=== PATIENT | female | born 1950 | race Caucasian/White ===

== ENCOUNTER 2020-08-30 13:29 | Emergency (ER) | payer BC, OTHER ==
[~2020-08-30] VITALS: Ht 165.1 cm; Wt 77.1 kg
[2020-08-30 15:22] VITALS: BP 114/73
[2020-08-30] MEDS ORDERED: ACETAMINOPHEN 500 MG TAB PO ONE (15:30)
== END 2020-08-30 15:54 | disposition home or self-care (01) ==
LOC: ER 13:29
DX: S29.011A Strain of muscle and tendon of front wall of thorax, initial encounter (principal); S80.02XA Contusion of left knee, initial encounter; I10 Essential (primary) hypertension; I48.91 Unspecified atrial fibrillation; J45.909 Unspecified asthma, uncomplicated; W01.0XXA Fall on same level from slipping, tripping and stumbling without subsequent striking against object, initial encounter; Y93.89 Activity, other specified; Y92.89 Other specified places as the place of occurrence of the external cause; Y99.8 Other external cause status
CPT/HCPCS: 71046; 73562; 93005

== ENCOUNTER 2021-06-27 11:11 | Emergency (ER) | payer BC ==
[~2021-06-27] VITALS: Ht 162.6 cm; Wt 103.4 kg
[2021-06-27 12:48] LABS: Basophils # (auto) 0.1 10 ^3/uL (0-0.2); Basophils % (auto) 0.9 % (0.0-2.0); Eosinophils # (auto) 0 10 ^3/uL (0-0.8); Eosinophils % (auto) 0.2 % (0.0-7.0); Hematocrit 49.8 % (36.0-46.0); Hemoglobin 16.4 g/dL (12.2-16.2); Lymphocytes # (auto) 1.9 10 ^3/uL (0.4-5.4); Mean Corpuscular Volume 87.8 fL (80.0-100.0); Monocytes # (auto) 0.6 10 ^3/uL (0-1.3); Monocytes % (auto) 4.3 % (0.0-12.0); Neutrophils # (auto) 11.9 10 ^3/uL (1.6-8.6); Neutrophils % (auto) 81.6 % (37.0-80.0); Nucleated Red Blood Cells % 0.2 %; Red Blood Cells 5.67 10^6/uL (4.0-5.20); Red Cell Distribution Width 14.4 % (11.8-14.3); White Blood Cell 14.6 10^3/uL (4.4-10.8)
[2021-06-27 13:09] LABS: Albumin 3.2 g/dL (3.4-5.0); BUN/Creatinine Ratio 9.4; Calcium 9.8 mg/dL (8.5-10.1); Potassium 4.3 mmol/L (3.5-5.1)
[2021-06-27 13:11] LABS: Bilirubin, Total 0.6 mg/dL (0.2-1.0); Total Protein 7.5 g/dL (6.4-8.2)
[2021-06-27 13:12] LABS: Magnesium 2.2 mg/dL (1.6-2.6)
[2021-06-27] MEDS ORDERED: KETOROLAC TROMETH 30 MG/ML 1ML VIAL IV ONE (13:30)
[2021-06-27] MEDS ORDERED: NITROGLYCERIN 0.4 MG SL TAB SL PRN (14:00)
[2021-06-27] MEDS ORDERED: DEXTROSE (50%) 50ML SYRG IV PRN (14:00)
[2021-06-27] MEDS ORDERED: ACETAMINOPHEN 325 MG TAB PO PRN (14:00)
[2021-06-27] MEDS ORDERED: SODIUM CHLORIDE 0.9% 1,000 ML IV SCH (14:00)
[2021-06-27] MEDS ORDERED: HYDROcodone-ACET 5/325MG TAB PO PRN (14:00)
[2021-06-27] MEDS ORDERED: MORPHINE SULFATE 4 MG/ML SYR/VIAL IV PRN (14:00)
[2021-06-27 16:17] VITALS: BP 109/86
[2021-06-27 16:29] LABS: INR 1.05 (0.9-1.15); Partial Thromboplastin Time 24.4 sec (23.6-33.0)
[2021-06-27] MEDS ORDERED: InsuLIN REG 1unit/0.01ml Soln (100units/ml) SC SCH (18:00)
[2021-06-27] MEDS ORDERED: ACCU-CHEK COMFORT CURVE STRIP VI SCH (18:00)
[2021-06-28] MEDS ORDERED: ENOXAPARIN SOD 40 MG/0.4 ML SYRINGE SC SCH (10:00)
== END 2021-06-27 16:34 | disposition short-term general hospital (02) ==
LOC: EDBD 11:11 → ER 11:11 → EDUNIT# 11:11 → TELE 13:53 → UNDOADMIN 13:53 → UNDODISIN 16:17
DX: T42.8X1A Poisoning by antiparkinsonism drugs and other central muscle-tone depressants, accidental (unintentional), initial encounter (principal); I62.00 Nontraumatic subdural hemorrhage, unspecified; R55 Syncope and collapse; I12.9 Hypertensive chronic kidney disease with stage 1 through stage 4 chronic kidney disease, or unspecified chronic kidney disease; I48.91 Unspecified atrial fibrillation; J45.909 Unspecified asthma, uncomplicated; N18.9 Chronic kidney disease, unspecified; G89.29 Other chronic pain; W18.39XA Other fall on same level, initial encounter; M54.9 Dorsalgia, unspecified; S90.31XA Contusion of right foot, initial encounter; S09.90XA Unspecified injury of head, initial encounter; Z86.73 Personal history of transient ischemic attack (TIA), and cerebral infarction without residual deficits; Z20.822 Contact with and (suspected) exposure to COVID-19; Z90.710 Acquired absence of both cervix and uterus; Y93.89 Activity, other specified; Y92.89 Other specified places as the place of occurrence of the external cause; Y99.8 Other external cause status
CPT/HCPCS: 36415; 70450; 71045; 73620; 80053; 83036; 83735; 84484; 85025; 85610; 85730; 87426; 93005; 93306; 96361; 96374; 99285; J1885; J7030; G0378

== ENCOUNTER 2021-10-21 17:42 | Emergency (ER) | payer BC ==
[~2021-10-21] VITALS: Ht 154.9 cm; Wt 77.5 kg
[2021-10-21 19:20] LABS: Basophils # (auto) 0.1 10 ^3/uL (0-0.2); Basophils % (auto) 0.6 % (0.0-2.0); Eosinophils # (auto) 0.2 10 ^3/uL (0-0.8); Hematocrit 48.5 % (36.0-46.0); Hemoglobin 15.7 g/dL (12.2-16.2); Lymphocytes # (auto) 2.5 10 ^3/uL (0.4-5.4); Lymphocytes % (auto) 22.5 % (10.0-50.0); Mean Corpuscular Hemoglobin 28.1 pg (28.0-32.0); Mean Corpuscular Hgb Conc. 32.5 g/dL (32.0-36.0); Mean Corpuscular Volume 86.5 fL (80.0-100.0); Monocytes # (auto) 0.6 10 ^3/uL (0-1.3); Monocytes % (auto) 5.5 % (0.0-12.0); Neutrophils # (auto) 7.8 10 ^3/uL (1.6-8.6); Neutrophils % (auto) 69.4 % (37.0-80.0); Nucleated Red Blood Cells % 0.1 %; Red Cell Distribution Width 14.4 % (11.8-14.3); White Blood Cell 11.2 10^3/uL (4.4-10.8)
[2021-10-21 19:40] LABS: Albumin 3.4 g/dL (3.4-5.0); BUN/Creatinine Ratio 14.1; Calcium 9.4 mg/dL (8.5-10.1); Potassium 4.3 mmol/L (3.5-5.1)
[2021-10-21 19:43] LABS: Bilirubin, Total 0.5 mg/dL (0.2-1.0); Total Protein 7.3 g/dL (6.4-8.2)
[2021-10-22 01:40] VITALS: BP 158/112
== END 2021-10-22 02:30 | disposition left against medical advice (07) ==
LOC: ER 17:42
DX: R00.2 Palpitations (principal); Z53.21 Procedure and treatment not carried out due to patient leaving prior to being seen by health care provider
CPT/HCPCS: 36415; 80053; 84484; 85025; 93005

== ENCOUNTER 2022-09-23 10:00 | Emergency (ER) | payer BC ==
[~2022-09-23] VITALS: Ht 152.4 cm; Wt 79.5 kg
[2022-09-23 10:22] VITALS: BP 144/74
[2022-09-23] MEDS ORDERED: HYDROcodone-ACET 5/325MG TAB PO ONE (10:30)
== END 2022-09-23 12:08 | disposition home or self-care (01) ==
LOC: ER 10:00
DX: S80.01XA Contusion of right knee, initial encounter (principal); S90.121A Contusion of right lesser toe(s) without damage to nail, initial encounter; I48.91 Unspecified atrial fibrillation; J45.909 Unspecified asthma, uncomplicated; I63.9 Cerebral infarction, unspecified; I25.2 Old myocardial infarction; I12.9 Hypertensive chronic kidney disease with stage 1 through stage 4 chronic kidney disease, or unspecified chronic kidney disease; N18.9 Chronic kidney disease, unspecified; Z90.49 Acquired absence of other specified parts of digestive tract; Z90.710 Acquired absence of both cervix and uterus; Z88.8 Allergy status to other drugs, medicaments and biological substances; W18.31XA Fall on same level due to stepping on an object, initial encounter; Y93.89 Activity, other specified; Y92.89 Other specified places as the place of occurrence of the external cause; Y99.8 Other external cause status
CPT/HCPCS: 73564; 73630

== ENCOUNTER 2025-02-23 07:11 | Inpatient (IN) | payer BC ==
[~2025-02-23] VITALS: Ht 165.1 cm; Wt 77.9 kg
--- NOTE | 2025-02-23 07:55 | ED.PDOC ---
History of Present Illness(SKN HPI Comments 75 y.o female with PMHx of NE, TIA x2, HTN, HLD, DM, presents to the ED for an evaluation of an insect bite to right eye x 1 day. Patient developed redness and swelling s/p bite and today states symptoms have spread to her cheek. She mentions similar symptoms when she was stung by a bee. She denies any fever, chills, nausea, vomiting, vision changes, or drainage. Chief Complaint: Insect Bite Time Seen by MD: 07:32 Primary Care Provider: NGHIA History of Present Illness: Nurses Notes, Medications, Allergies Allergies: Coded Allergies: Prochlorperazine (Verified Allergy, Unknown, 09/23/22) Information Source: Patient, Spouse Mode of Arrival: Ambulatory Severity: Moderate Timing: Days (1) Duration: Since onset Location: Face Mechanism: Insect Object: None Condition of Object: None Immunization Status of Animal: NA History of: Diabetes, Previous Similar Rash Associated Signs and Symptoms: Redness, Swelling Past Medical History PAST MEDICAL HISTORY: AFIB, Asthma, CKF, CVA, DM, HTN, NE Surgical History: Appendectomy, Cholecystectomy, Hysterectomy PROCEDURE RN History: Denies all PROCEDURE RN Hx Family History Family History: Unknown Social History Smoker: Non-Smoker Alcohol: Denies ETOH Use Drugs: Denies Drug Use Lives In: Home Constitutional: denies: chills, diaphoresis, fatigue, fever, malaise, sweats, weakness, others EENTM: denies: blurred vision, double vision, ear bleeding, ear discharge, ear drainage, ear pain, ear ringing, eye pain, eye redness, hearing loss, mouth pain, mouth swelling, nasal discharge, nose bleeding, nose congestion, nose pain, photophobia, tearing, throat pain, throat swelling, voice changes, others Respiratory: denies: cough, hemoptysis, orthopnea, SOB at rest, shortness of breath, SOB with excertion, stridor, wheezing, others Cardiovascular: denies: chest pain, dizzy spells, diaphoresis, Dyspnea on exertion, edema, irregular heart beat, left arm pain, lightheadedness, palpitations, PND, syncope, others Gastrointestinal: denies: abdomen distended, abdominal pain, blood streaked bowels, constipated, diarrhea, dysphagia, difficulty swallowing, hematemesis, melena, nausea, poor appetite, poor fluid intake, rectal bleeding, rectal pain, vomiting, others Genitourinary: denies: abnormal vagina bleeding, burning, dyspareunia, dysuria, flank pain, frequency, hematuria, incontinence, pain, , vagina discharge, urgency, others Neurological: denies: dizziness, fainting, headache, left sided numbness, left sided weakness, numbness, paresthesia, pre-existing deficit, right sided numbness, right sided weakness, seizure, speech problems, tingling, tremors, weakness, others Musculoskeletal: denies: back pain, gout, joint pain, joint swelling, muscle pain, muscle stiffness, neck pain, others Integumetry: reports: others (insect bite to right eyelid- redness and swelling ); denies: bruises, change in color, change in hair/nails, dryness, laceration, lesions, lumps, rash, wounds Allergic/Immunocompromised: denies: Difficulty Healing, Frequent Infections, Hives, Itching, others Hematologic/Lymphatic: denies: anemia, blood clots, easy bleeding, easy bruising, swollen glands, others Endocrine: denies: excessive hunger, excessive sweating, excessive thirst, excessive urination, flushing, intolerance to cold, intolerance to heat, unexplained weight gain, unexplained weight loss, others Psychiatric: denies: anxiety, bipolar disorder, depression, hopeless, panic disorder, schizophrenia, sleepless, suicidal, others All Other Systems: Reviewed and Negative Physical Exam General Appearance: Moderate Distress HEENT: Normal ENT Inspection, Pharynx Normal, TMs Normal Neck: Full Range of Motion, Non-Tender, Normal, Normal Inspection Respiratory: Chest Non-Tender, Lungs Clear, No Accessory Muscle Use, No Respiratory Distress, Normal Breath Sounds Cardiovascular: No Edema, No JVD, No Murmur, No Gallop, Normal Peripheral P ulses, Regular Rate/Rhythm Breast Exam: Deferred Gastrointestinal: No Organomegaly, Non Tender, No Pulsatile Mass, Normal Bowel Sounds, Soft Genitalia: Deferred Pelvic: Deferred Rectal: Deferred Extremities: No calf tenderness, Normal capillary refill, Normal inspection, Normal range of motion, Non-tender, No pedal edema Musculoskeletal : Apperance: Normal Neurologic: Alert, chief technician x ray II-XII nml as Tested, No Motor Deficits, Normal Affect, Normal Mood, No Sensory Deficits Cerebellar Function: Normal Reflexes: Normal Skin: Wounds (Facial redness with swelling in the right side including the lower eyelid) Peripheral Pulses: 3+ Radial (R), 3+ Radial (L) Lymphatic: No Adenopathy Was a procedure done? Was a procedure done?: No Differential Diagnosis (INTG) Differential Diagnosis: Cellulitis, Insect Envenomation Differential Diagnosis: Abscess X-Ray, Labs, Meds, VS Vital Signs Date Time Temp Pulse Resp B/P (MAP) Pulse Ox O2 Delivery O2 Flow Rate FiO2 02/23/25 07:13 98.1 88 18 168/89 92 98.1 Lab Test 02/23/25 08:00 Range/Units White Blood Count Pending Red Blood Count Pending Hemoglobin Pending Hematocrit Pending Mean Corpuscular Volume Pending Mean Corpuscular Hemoglobin Pending Mean Corpuscular Hemoglobin Concent Pending Red Cell Distribution Width Pending Platelet Count Pending Mean Platelet Volume Pending Neutrophils (%) (Auto) Pending Lymphocytes (%) (Auto) Pending Monocytes (%) (Auto) Pending Basophils (%) (Auto) Pending Neutrophils # (Auto) Pending Lymphocytes # (Auto) Pending Monocytes # (Auto) Pending Sodium Level Pending Potassium Level Pending Chloride Level Pending Carbon Dioxide Level Pending Anion Gap Pending Blood Urea Nitrogen Pending Creatinine Pending Glomerular Filtration Rate Calc Pending BUN/Creatinine Ratio Pending Serum Glucose Pending Calcium Level Pending Current Medications Medications (Trade) Dose Ordered Sig/Dalia Route Start Time Stop Time Status Last Admin Sodium Chloride 1,000 ml @ 150 mls/hr Q6H40M ONCE IV 02/23/25 08:00 02/23/25 14:39 02/23/25 08:15 Piperacillin Sod/ Tazobactam Sod 100 ml @ 100 mls/hr ONCE ONCE IV 02/23/25 08:00 02/23/25 08:59 02/23/25 08:15 Patient alert pain Has a insect bite on the right side of the face. Within 24 hours she does have swelling of the right side of the face including the right lower eyelid. Vitals stable. No shortness a breath. She does have chronic history. Explained to the family that she will be admitted for intravenous antibiotics. Establish intravenous access. Was given fluids. Was given Zosyn. Continue monitoring. Time of 1ST Reevaluation: 07:51 Reevaluation 1ST: Unchanged Patient Education/Counseling: Diagnosis, Treatment, Prognosis Family Education/Counseling: Diagnosis, Treatment, Prognosis SEPSIS Sepsis Screen Date sepsis recognized/suspect: Feb 23, 2025 Time Sepsis recognized/suspect: 714 Recent Procedure: No On Antibiotic Therapy: No Respiratory Rate >20: No Heart Rate >90: No Temp<36 C (96.8 F) or >38.3 C: No SBP <90 or MAP <65 mmHG: No New Acute Mental Status Change: No Is the patient on CPAP, BIPAP,: No Physician Orders Complete Blood Count (02/23/25 07:54) Chest Portable (02/23/25 07:54) Urinalysis (02/23/25 07:54) Basic Metabolic Panel (02/23/25 07:54) Sodium Chloride 0.9% (02/23/25 08:00) Piperacillin-Tazob 3.375gm (Zosyn 3.375g (02/23/25 08:00) Vital Signs Date Time Temp Pulse Resp B/P (MAP) Pulse Ox O2 Delivery O2 Flow Rate FiO2 02/23/25 07:13 98.1 88 18 168/89 92 98.1 Laboratory Tests Test 02/23/25 08:00 White Blood Count Pending Medications Medications Dose Ordered Sig/Dalia Route Start Time Stop Time Status Last Admin Dose Admin Piperacillin Sod/ Tazobactam Sod 100 ml @ 100 mls/hr ONCE ONCE IV 02/23/25 08:00 02/23/25 08:59 02/23/25 08:15 Sodium Chloride 1,000 ml @ 150 mls/hr Q6H40M ONCE IV 02/23/25 08:00 02/23/25 14:39 02/23/25 08:15 Departure 1 Departure Time of Disposition: 08:34 Impression: Primary Impression: Facial cellulitis Disposition: 09 ADMITTED INPATIENT Admit to: Med Surg Condition: Guarded Critical Care Note Critical Care Time?: No Stability Stability form required: No I personally scribed for LOGAN CLEMENTE MD ([email or web address]) on 02/23/25 at 07:55. Electronically submitted by Bev Sexton ([facility]). LOGAN CLEMENTE MD Feb 23, 2025 07:55
[2025-02-23] MEDS: SODIUM CHLORIDE 0.9% 1,000 ML IV ONE (08:15)
[2025-02-23] MEDS: PIPERACILLIN-TAZOB 3.375GM 100 ML IV ONE (08:15)
[2025-02-23 08:30] LABS: Hematocrit 47.3 % (36.0-46.0); Hemoglobin 15.9 g/dL (12.2-16.2); Mean Corpuscular Hemoglobin 29.1 pg (28.0-32.0); Mean Corpuscular Volume 86.6 fL (80.0-100.0); Nucleated Red Blood Cells % 0.2 %
[2025-02-23 08:50] LABS: Chloride 103 mmol/L (98-107); Potassium 4.4 mmol/L (3.5-5.1); Sodium 139 mmol/L (136-145)
[2025-02-23 08:51] LABS: Anion Gap 9 (5-15); Calcium 10.1 mg/dL (8.7-10.4); Carbon Dioxide 27 mmol/L (20-31)
[2025-02-23 08:56] LABS: BUN/Creatinine Ratio 14.1 (10.0-20.0)
[2025-02-23 08:57] LABS: Blood Urea Nitrogen 23 mg/dL (9-23); Glucose 215 mg/dL (74-106)
[2025-02-23] MEDS: ONDANSETRON HCL 4 MG/2 ML VIAL IV ONE (09:05)
[2025-02-23] MEDS: HYDROcodone-ACET 7.5/325MG TAB PO ONE (09:05)
--- NOTE | 2025-02-23 09:05 | DVH ---
EXAM: XY CHEST PORTABLE Indication: sob Technique: Single frontal view of the chest was obtained Comparison: XR CHEST 1 VIEW on DOS: 05/18/24, CXRP on DOS: 06/27/21, CHEST PORTABLE on DOS: 06/27/21 FINDINGS: Lines and Tubes: Cardiac loop recorder device projects over the left mediastinum. Lungs: Mild pulmonary vascular congestion. Pleura: No effusion. No pneumothorax. Cardiomediastinal contours: Unremarkable Bones: No acute osseous abnormality. IMPRESSION: Mild pulmonary vascular congestion.
[2025-02-23 11:37] LABS: Urine Protein, UAD Negative (Negative)
--- NOTE | 2025-02-23 12:17 | DVH ---
CT MAXILLOFACIAL WITHOUT Indication: Evaluate periorbital collection, pt has CKD (no contrast) EXAM DATE: 02/23/2025 11:36 AM COMPARISON: None TECHNIQUE: CT of the maxillofacial bones without intravenous contrast. RADIATION DOSE: CTDIvol: 66.3 mGy, DLP: 1333.46 mGy*cm FINDINGS: There is bright orbital preseptal and Right facial region edema with inflammatory stranding. This is more pronounced in the right facial /infraorbital orbital region. There is no evidence for retrobulbar extension. The extra-ocular muscles appear unremarkable. There is a small right mastoid effusion. Mild mucosal thickening of the ethmoids. Incidental note of empty sella. No facial region Fracture identified. IMPRESSION: Right orbital preseptal and Right facial region edema and stranding could represent cellulitis in the appropriate setting. Correlate clinically. No evidence for postseptal/ retrobulbar extension. Empty sella.
[2025-02-23] MEDS ORDERED: ACETAMINOPHEN 325 MG TAB PO PRN (12:45)
--- NOTE | 2025-02-23 12:49 | DVHHPRES ---
History of Present Illness Resident Creating Document: HARDY FIELD History of Present Illness Nichelle Abel is a 75 year old female patient who presents to the ED with chief complaint of right periorbital swelling with difficulty opening her eyes and erythema that was triggered after insect bite (ant) which occurred at 7:00 a.m. the day before her admission. Associated she also complaint of chills, nausea and nonbloody vomiting with bile emesis. Patient reports similar symptoms when she had a bee sting bite previously. Patient denies any visual acuity changes, ocular pain with movement, fever and any other associated symptoms. Past medical dyslipidemia diabetes head trauma proximally two years ago and after mechanical fall with brain bleed, since then patient has presented gait alteration and mobilizes with walker, asthma, questionable HI nine years ago with no coronary angiography, chronic kidney disease stage 3, gastritis, chronic back pain, PUD complicated with perforation status post exploratory laparotomy, skin cancer Surgical history: Cholecystectomy, appendicectomy, exploratory laparotomy Family history: Mother had breast cancer. Daughter had multiple myeloma Social history: Lives in [place] with family (next of kin is ). Denies current tobacco, alcohol and other drug abuse Allergies: Prochlorperazine Home medication: Reglan, morphine, Zofran, famotidine, melatonin, Farxiga Patient seen and examined at bedside. Currently has no new complaints. Admitted for further evaluation Past Medical History Per HPI Past Surgical History Per HPI Family History Per HPI Past Social History Per HPI Review of Systems Review of Systems Per HPI Allergies: Coded Allergies: Prochlorperazine (Verified Allergy, Unknown, 09/23/22) Medications Current Medications Medications Dose Ordered Sig/Dalia Route Start Time Stop Time Status Last Admin Dose Admin Acetaminophen 325 mg Q4HP PRN PO 02/23/25 12:45 UNV Ondansetron HCl 4 mg Q4HP PRN IV 02/23/25 12:45 UNV Morphine Sulfate 2 mg Q4HPRN PRN IV 02/23/25 12:45 UNV Enoxaparin Sodium 40 mg DAILY SC 02/24/25 10:00 UNV Clindamycin Phosphate 50 ml @ 50 mls/hr Q8HR IV 02/23/25 14:00 UNV Piperacillin Sod/ Tazobactam Sod 100 ml @ 25 mls/hr Q8HR IV 02/23/25 14:00 UNV Exam Vital Signs Vital Signs Date Time Temp Pulse Resp B/P (MAP) Pulse Ox O2 Delivery O2 Flow Rate FiO2 02/23/25 11:07 98.5 60 17 123/80 (94) 100 98.5 02/23/25 08:53 Room Air Exam Patient lying in bed, in no acute distress General: Lucid, afebrile, mucosae are moist. Right periorbital region with erythema and edema, no pain on palpation, no pain with eye movements. Cardiovascular: Normal S1 and S2. No murmurs, gallops or rubs Respiratory: Normal ventilation mechanics. Clear lung sounds on auscultation Abdomen: Soft, nontender, no organomegaly, normal bowel sounds MSK/skin: Mobilizes 4 limbs. Skin is dry and warm Neurological: Oriented in 3 spheres. No motor no sensitive deficits. Pupils are isocoric and reactive Labs/Xrays Labs Test 02/23/25 10:41 02/23/25 08:00 Range/Units Urine Color Light-yellow Yellow Urine Clarity Clear Clear Urine pH 5.0 5.0-9.0 Urine Specific [place] 1.011 1.001-1.035 Urine Protein Negative Negative Urine Ketones Negative Negative Urine Blood Negative Negative /uL Urine Nitrite Negative Negative Urine Bilirubin Negative Negative Urine Urobilinogen Normal Negative mg/dL Urine Leukocyte Esterase 1+ Negative /uL Urine RBC 1 0 - 4 /hpf Urine Microscopic WBC 5 0-5 /HPF Urine Squamous Epithelial Cells Few <5 /hpf Urine Uric Acid Crystals Few None Seen /hpf Urine Bacteria Few H None Seen /hpf Urine Glucose 4+ H Normal mg/dL White Blood Count 8.5 4.4-10.8 10^3/uL Red Blood Count 5.47 H 4.0-5.20 10^6/uL Hemoglobin 15.9 12.2-16.2 g/dL Hematocrit 47.3 H 36.0-46.0 % Mean Corpuscular Volume 86.6 80.0-100.0 fL Mean Corpuscular Hemoglobin 29.1 28.0-32.0 pg Mean Corpuscular Hemoglobin Concent 33.6 32.0-36.0 g/dL Red Cell Distribution Width 14.6 H 11.8-14.3 % Platelet Count 145 140-450 10^3/uL Mean Platelet Volume 8.3 6.9-10.8 fL Neutrophils (%) (Auto) 72.0 37.0-80.0 % Lymphocytes (%) (Auto) 19.9 10.0-50.0 % Monocytes (%) (Auto) 5.6 0.0-12.0 % Eosinophils (%) (Auto) 1.8 0.0-7.0 % Basophils (%) (Auto) 0.7 0.0-2.0 % Neutrophils # (Auto) 6.1 1.6-8.6 10 ^3/uL Lymphocytes # (Auto) 1.7 0.4-5.4 10 ^3/uL Monocytes # (Auto) 0.5 0-1.3 10 ^3/uL Eosinophils # (Auto) 0.2 0-0.8 10 ^3/uL Basophils # (Auto) 0.1 0-0.2 10 ^3/uL Nucleated Red Blood Cells 0.2 % Sodium Level 139 136-145 mmol/L Potassium Level 4.4 3.5-5.1 mmol/L Chloride Level 103 98-107 mmol/L Carbon Dioxide Level 27 20-31 mmol/L Anion Gap 9 5-15 Blood Urea Nitrogen 23 9-23 mg/dL Creatinine 1.63 H 0.550-1.02 mg/dL Glomerular Filtration Rate Calc 33 >90 mL/min BUN/Creatinine Ratio 14.1 10.0-20.0 Serum Glucose 215 H 74-106 mg/dL Calcium Level 10.1 8.7-10.4 mg/dL SEPSIS Sepsis Screen Date sepsis recognized/suspect: Feb 23, 2025 Time Sepsis recognized/suspect: 714 Recent Procedure: No On Antibiotic Therapy: No Respiratory Rate >20: No Heart Rate >90: No Temp<36 C (96.8 F) or >38.3 C: No SBP <90 or MAP <65 mmHG: No New Acute Mental Status Change: No Is the patient on CPAP, BIPAP,: No Physician Orders Chest Portable (02/23/25 07:54) Sodium Chloride 0.9% (02/23/25 08:00) Maxillofacial Without (02/23/25 11:26) Admit (02/23/25 12:41) Code Status (02/23/25 12:41) Acetaminophen Tablet (Tylenol Tablet) (02/23/25 12:45) Ondansetron Hcl (Zofran) (02/23/25 12:45) Complete Blood Count (02/24/25 04:00) Comprehensive Metabolic Panel (02/24/25 04:00) Cardiac Diet-2gna,Lofat,Lochol (02/23/25 Lunch) Echo 2d Mode Cardiac Dop (02/23/25 12:41) Morphine Sulfate Injection (02/23/25 12:45) Oxygen By Nasal Cannula (02/23/25 12:41) Stat Ekg For Chest Pain (02/23/25 12:41) Notify Md Of Changes From Base (02/23/25 12:41) Meat Grader For 24 Hours (02/23/25 12:41) Emergency Dysrhythmia Protocol (02/23/25 12:41) Rhythm Strips Once Every Shift (02/23/25 12:41) Vitamin D, 25-Hydroxy (02/23/25 12:41) Vitamin B12 (02/23/25 12:41) Urinalysis (02/23/25 12:41) Thyroid Stimulating Hormone (02/23/25 12:41) PTPTT (02/23/25 12:41) Phosphorus (02/23/25 12:41) Magnesium (02/23/25 12:41) Lipid Panel (02/23/25 12:41) Lipase (02/23/25 12:41) Lactic Acid W/ Reflex Order (02/23/25 12:41) Hemoglobin A1c (02/23/25 12:41) Drug Screen (02/23/25 12:41) Blood Culture (02/23/25 12:41) * Wound Consult (02/23/25 ) Wound Culture W/ Gs (02/23/25 12:41) Clindamycin 300mg Iv (Cleocin Iv) (02/23/25 14:00) Piperacillin-Tazob 3.375gm (Zosyn 3.375g (02/23/25 14:00) Urine Bacterial Culture (02/23/25 12:41) Respiratory Culture W/ Gs (02/23/25 12:41) Mrsa Screen (02/23/25 12:41) Enoxaparin Sodium (Lovenox) (02/24/25 10:00) Chest Ultrasound (02/23/25 12:46) Vital Signs Date Time Temp Pulse Resp B/P (MAP) Pulse Ox O2 Delivery O2 Flow Rate FiO2 02/23/25 11:07 98.5 60 17 123/80 (94) 100 98.5 02/23/25 08:53 98.5 75 16 114/70 (85) 97 98.5 02/23/25 08:53 75 16 97 Room Air 02/23/25 07:13 98.1 88 18 168/89 92 98.1 Laboratory Tests Test 02/23/25 08:00 White Blood Count 8.5 10^3/uL (4.4-10.8) Medications Medications Dose Ordered Sig/Dalia Route Start Time Stop Time Status Last Admin Dose Admin Acetaminophen/ Hydrocodone Bitart 1 tab ONCE ONCE PO 02/23/25 09:00 02/23/25 09:01 DC 02/23/25 09:05 1 TAB Ondansetron HCl 4 mg ONCE ONCE IV 02/23/25 09:00 02/23/25 09:01 DC 02/23/25 09:05 4 MG Piperacillin Sod/ Tazobactam Sod 100 ml @ 100 mls/hr ONCE ONCE IV 02/23/25 08:00 02/23/25 08:59 DC 02/23/25 08:15 100 MLS/HR Sodium Chloride 1,000 ml @ 150 mls/hr Q6H40M ONCE IV 02/23/25 08:00 02/23/25 14:39 02/23/25 08:15 150 MLS/HR Assessment/Plan Assessment/Plan ASSESSMENT Right preseptal ocular Cellulitis secondary to insect bite Ruled out periorbital abscess UTI Simple hyperglycemia Left-sided pleural effusion Asthma with no exacerbation Chronic kidney disease stage III B Dyslipidemia Diabetes History of brain bleed with residual gait disturbance - uses walker Peptic ulcer disease with history of perforation status post exploratory laparotomy Chronic back pain History of skin cancer status postop PLAN Admitted to [facility] Ordered maxillofacial CT which ruled out periorbital collections, evidenced cellulitis. Currently under empiric IV antibiotic (clindamycin and Zosyn) Indicated IV fluids Chest x-ray shows left-sided pleural effusion. Ordered chest ultrasound Ordered pancultures On insulin sliding scale Goals of care discussed with patient for over 18 minutes: DNR/DNI Discussed plan with Dr. Graves, patient and nurses: Patient admitted to [facility]. Currently under empiric IV antibiotic and IV fluids. Pending complementary workup. Plan discussed with: Patient, Other (Nurses) My Orders Orders - HARDY FIELD RESIDENT Procedure Category Date Status Time Maxillofacial Without CT 02/23/25 Resulted 11:26 Admit ADMIT 02/23/25 Transmitted 12:41 Code Status CODE 02/23/25 Transmitted 12:41 Acetaminophen Tablet PHA 02/23/25 Logged (Tylenol Tablet) 12:45 Ondansetron Hcl PHA 02/23/25 Logged (Zofran) 12:45 Complete Blood Count LAB 02/24/25 Verified 04:00 Comprehensive LAB 02/24/25 Verified Metabolic Panel 04:00 Cardiac DIET 02/23/25 Transmitted Diet-2gna,Lofat,Lochol Lunch Echo 2d Mode Cardiac US 02/23/25 Logged DOP 12:41 Morphine Sulfate PHA 02/23/25 Logged Injection 12:45 Oxygen By Nasal RT 02/23/25 Transmitted Cannula 12:41 Stat Ekg For Chest [facility] 02/23/25 In Process Pain 12:41 Notify Md Of Changes [facility] 02/23/25 In Process From Base 12:41 Meat Grader For [facility] 02/23/25 In Process 24 Hours 12:41 Emergency Dysrhythmia [facility] 02/23/25 In Process Protocol 12:41 Rhythm Strips Once [facility] 02/23/25 In Process Every Shift 12:41 Vitamin D, 25-Hydroxy LAB 02/23/25 Logged 12:41 Vitamin B12 LAB 02/23/25 Logged 12:41 Urinalysis LAB 02/23/25 Logged 12:41 Thyroid Stimulating LAB 02/23/25 Logged Hormone 12:41 PTPTT LAB 02/23/25 Logged 12:41 Phosphorus LAB 02/23/25 Logged 12:41 Magnesium LAB 02/23/25 Logged 12:41 Lipid Panel LAB 02/23/25 Logged 12:41 Lipase LAB 02/23/25 Logged 12:41 Lactic Acid W/ Reflex LAB 02/23/25 Logged Order 12:41 Hemoglobin A1c LAB 02/23/25 Logged 12:41 Drug Screen LAB 02/23/25 Logged 12:41 Blood Culture ROBERTO 02/23/25 Logged 12:41 * Wound Consult CONS 02/23/25 Transmitted Wound Culture W/ Gs ROBERTO 02/23/25 Logged 12:41 Clindamycin 300mg Iv PHA 02/23/25 Logged (Cleocin Iv) 14:00 Piperacillin-Tazob PHA 02/23/25 Logged 3.375gm (Zosyn 3.375g 14:00 Urine Bacterial ROBERTO 02/23/25 Logged Culture 12:41 Respiratory Culture ROBERTO 02/23/25 Logged W/ Gs 12:41 Mrsa Screen ROBERTO 02/23/25 Logged 12:41 Enoxaparin Sodium PHA 02/24/25 Logged (Lovenox) 10:00 Chest Ultrasound US 02/23/25 Logged 12:46 Date of Service: Feb 23, 2025 Billing Provider: SCOTT GRAVES MD Common Visit Codes: [id number] INP/OBS CARE (HIGH) Secondary Visit Codes: [id number] CARE PLAN 30 MINUTES HARDY FIELD RESIDENT Feb 23, 2025 12:49
--- NOTE | 2025-02-23 13:22 | DVH ---
Exam: US CHEST ULTRASOUND Date: 02/23/2025 01:02 PM Clinical History: Pleural effusion Comparison: CT CHEST WITHOUT on DOS: 05/18/24 Technique: Targeted sonographic evaluation of the soft tissues of the chest bilaterally was obtained utilizing grayscale and color Doppler imaging. Findings: No pleural effusions bilaterally IMPRESSION: 1. No pleural effusions bilaterally.
[2025-02-23] MEDS ORDERED: DEXTROSE (50%) 50ML SYRG IV PRN (13:30)
[2025-02-23 13:34] LABS: INR 1.0 (0.9-1.15); Partial Thromboplastin Time 25.7 SEC (24.5-34.5); Prothrombin Time 10.6 sec (9.3-11.8)
[2025-02-23 13:43] LABS: Magnesium 2.0 mg/dL (1.6-2.6)
[2025-02-23] MEDS: PIPERACILLIN-TAZOB 3.375GM 100 ML IV SCH (13:43)
[2025-02-23] MEDS: CLINDAMYCIN 300MG IV 50 ML IV SCH (13:43)
[2025-02-23 13:44] LABS: HDL Cholesterol 40.0 mg/dL (40-59)
[2025-02-23 13:48] LABS: Cholesterol 236.0 mg/dL (< 200); Triglycerides 365.0 mg/dL (< 150)
[2025-02-23 14:05] LABS: Lipase 86.0 U/L (12-53)
[2025-02-23 14:22] VITALS: BP 138/71; PULSE 67; RESP 16; TEMP 98.4; O2SAT 94
[2025-02-23] MEDS ORDERED: METO-281 PO (14:30)
[2025-02-23] MEDS ORDERED: FAMO20TA10 PO (14:30)
[2025-02-23] MEDS ORDERED: ONDA-155 PO (14:30)
[2025-02-23] MEDS ORDERED: DAPA1TAB4 PO (14:30)
[2025-02-23] MEDS ORDERED: MORP15TA PO (14:30)
[2025-02-23 16:27] LABS: Benzodiazephine Screen, Urine Neg (NEGATIVE)
[2025-02-23 16:34] LABS: Amphetamine Screen, Urine Neg (NEGATIVE); Barbiturate Scree,Urine Neg (NEGATIVE); Cannabinoid Screen, Urine Neg (NEGATIVE); Cocaine Screen, Urine Neg (NEGATIVE); Opiate Scree,Urine Pos (NEGATIVE); Phencyclidine Screen, Urine Neg (NEGATIVE)
[2025-02-23] MEDS: ACCU-CHEK COMFORT CURVE STRIP VI SCH (17:00)
[2025-02-23] MEDS: InsuLIN REG 1unit/0.01ml Soln (100units/ml) SC SCH (17:00)
[2025-02-23 21:00] VITALS: BP 136/67; PULSE 68; RESP 16; TEMP 98; O2SAT 94
[2025-02-23] MEDS: MORPHINE SULFATE INJ 2 MG/ml SYRG IV PRN (21:08)
[2025-02-24] VITALS (8 sets, daily range): BP systolic 116–154; BP diastolic 56–88; PULSE 63–97; RESP 16–18; TEMP 97.9–98.2; O2SAT 94–97
[2025-02-24] MEDS: ONDANSETRON HCL 4 MG/2 ML VIAL IV PRN (01:41)
[2025-02-24 06:56] LABS: Hematocrit 45.1 % (36.0-46.0); Hemoglobin 15.5 g/dL (12.2-16.2); Mean Corpuscular Hemoglobin 29.6 pg (28.0-32.0); Mean Corpuscular Volume 86.5 fL (80.0-100.0); Nucleated Red Blood Cells % 0.1 %
[2025-02-24 07:05] LABS: Alanine Aminotransferase 29 U/L (7-40); Albumin 4.0 g/dL (3.2-4.8); Anion Gap 9 (5-15); BUN/Creatinine Ratio 11.7 (10.0-20.0); Blood Urea Nitrogen 19 mg/dL (9-23); Calcium 9.6 mg/dL (8.7-10.4); Carbon Dioxide 26 mmol/L (20-31); Chloride 106 mmol/L (98-107); Potassium 4.3 mmol/L (3.5-5.1); Sodium 141 mmol/L (136-145); Total Protein 6.9 g/dL (5.7-8.2)
[2025-02-24 07:06] LABS: Bilirubin, Total 1.1 mg/dL (0.2-1.0)
[2025-02-24 07:11] LABS: Glucose 182 mg/dL (74-106)
[2025-02-24 07:34] LABS: Alkaline Phosphatase 112 U/L (46-116)
[2025-02-24] MEDS: ENOXAPARIN SOD 40 MG/0.4 ML SYRINGE SC SCH (10:35)
--- NOTE | 2025-02-24 12:40 | DVHPNRES ---
Progress Note Date Seen: Feb 24, 2025 Resident Creating Document: GARY CARBAJAL RESIDENT Medical Necessity Reason Pt with a Central, PICC or Fol: No Subjective Review of Systems Nichelle Abel is a 75 year old female with past medical history dyslipidemia diabetes head trauma proximally two years ago and after mechanical fall with brain bleed, since then patient has presented gait alteration and mobilizes with walker, asthma, questionable NE nine years ago with no coronary angiography, chronic kidney disease stage 3, gastritis, chronic back pain, PUD complicated with perforation status post exploratory laparotomy, skin cancer presented to the ED with chief complaint of right periorbital swelling with difficulty opening her eyes and erythema that was triggered after insect bite (ant) which occurred at 7:00 a.m. the day before her admission. Associated she also complaint of chills, nausea and nonbloody vomiting with bile emesis. Patient reports similar symptoms when she had a bee sting bite previously. Patient denies any visual acuity changes, ocular pain with movement, fever and any other associated symptoms. On lab workup no leukocytosis, serum creatinine 1.63, GFR 33, HbA1c 12.5, serum glucose 215, started 365, LDL 236. Urinalysis revealed leukocyte esterase 1+, WBC 5, bacteria few. Maxillofacial CT revealed- Right orbital preseptal and Right facial region edema and stranding could represent cellulitis in the appropriate setting. Correlate clinically. No evidence for postseptal/ retrobulbar extension.Empty sella. Chest x-ray mild pulmonary vascular congestion. Ultrasound of the chest negative for pleural effusion. Past medical dyslipidemia diabetes head trauma proximally two years ago and after mechanical fall with brain bleed, since then patient has presented gait alteration and mobilizes with walker, asthma, questionable NE nine years ago with no coronary angiography, chronic kidney disease stage 3, gastritis, chronic back pain, PUD complicated with perforation status post exploratory laparotomy, skin cancer Surgical history: Cholecystectomy, appendicectomy, exploratory laparotomy Family history: Mother had breast cancer. Daughter had multiple myeloma Social history: Lives in [place] with family (next of kin is ). Denies current tobacco, alcohol and other drug abuse Allergies: Prochlorperazine Home medication: Reglan, morphine, Zofran, famotidine, melatonin, Farxiga Patient was seen today at bedside, labs and chart reviewed. No new complaint Patient reported feeling better today Patient has swelling and redness on the face has improved Patient is on Zosyn and clindamycin, tolerating well Objective vital signs Vital Sign Date Time Temp Pulse Resp B/P (MAP) Pulse Ox O2 Delivery O2 Flow Rate FiO2 02/24/25 08:00 97.9 80 17 154/88 (110) 94 97.9 02/23/25 20:00 Room Air* 0 21 Total Intake and Output 02/23/25 02/23/25 02/24/25 15:00 23:00 07:00 Intake Total 0 ml Output Total 500 ml Balance -500 ml medications Current Medications Medications Dose Ordered Sig/Dalia Route Start Time Stop Time Status Last Admin Dose Admin Acetaminophen 325 mg Q4HP PRN PO 02/23/25 12:45 Ondansetron HCl 4 mg Q4HP PRN IV 02/23/25 12:45 02/24/25 10:35 4 MG Morphine Sulfate 2 mg Q4HPRN PRN IV 02/23/25 12:45 02/24/25 01:41 2 MG Enoxaparin Sodium 40 mg DAILY SC 02/24/25 10:00 02/24/25 10:35 40 MG Clindamycin Phosphate 50 ml @ 50 mls/hr Q8HR@0500,1300,2100 IV 02/23/25 13:00 02/24/25 06:07 50 MLS/HR Piperacillin Sod/ Tazobactam Sod 100 ml @ 25 mls/hr Q8HR IV 02/23/25 14:00 02/24/25 06:56 25 MLS/HR Diagnostic Test (Pha) 1 strip ACHS 02/23/25 17:00 02/24/25 06:49 1 STRIP Insulin Human Regular ACHS SC 02/23/25 17:00 02/24/25 06:49 3 UNITS Dextrose 50 ml UD PRN IV 02/23/25 13:30 Examination General examination- awake, alert, oriented HEENT- PEERLA-redness in the right side of the face, under the right eye Cardiovascular- S1-S2 audible, rate and rhythm regular, no murmur Respiratory- CTAB, no wheeze or rhonchi Gastrointestinal-nontender, bowel sound+. Nondistended Musculoskeletal-no acute joint swelling or tenderness or redness Lower extremity- no leg edema Neurological- cranial nerves intact, no acute dysarthria or dysphagia Psychiatry- denies depression or SI or HI Skin- no acute rash or purpura laboratory and microbiology Laboratory Tests 02/24/25 06:25 Test 02/24/25 06:25 Range/Units Serum Glucose 182 H 74-106 mg/dL Microbiology Date/Time Source Procedure Growth Status 02/23/25 13:41 Face Gram Stain Pending Resulted 02/23/25 13:41 Face Wound Culture - Preliminary Resulted 02/23/25 10:41 Voided Urine Urine Culture - Preliminary No growth Resulted Problem List/Assessment/Plan Problem List/Assessment/Plan Assessment and plan #Right preseptal ocular Cellulitis secondary to insect bite Ruled out periorbital abscess -xillofacial CT revealed- Right orbital preseptal and Right facial region edema and stranding could represent cellulitis in the appropriate setting. Correlate clinically. No evidence for postseptal/ retrobulbar extension.Empty sella. . -pending wound culture -pending blood culture -continue Zosyn and clindamycin as prescribed -monitor vitals #UTI -Urinalysis revealed leukocyte esterase 1+, WBC 5, bacteria few -urine culture no growth so far -continue current antibiotic # diabetes mellitus type 2 with hyperglycemia #Dyslipidemia -continue insulin sliding scale as prescribed -continue atorvastatin as prescribed #Asthma with no exacerbation -nebulization PRN #Chronic kidney disease stage III B -avoid dehydration and nephrotoxic drugs #History of brain bleed with residual gait disturbance - uses walker -follow up outpatient with the primary care physician #Peptic ulcer disease with history of perforation status post exploratory laparotomy -continue pantoprazole as prescribed #Chronic back pain -Tylenol PRN #History of skin cancer status postop -follow up PCP outpatient Goals of care, Code status DNR ; discussed with >15 minutes PUD prophylaxis: Pantoprazole DVT prophylaxis: Lovenox Plan discussed with Dr. Graves , nursing staff, Patient Total time spent on patient evaluation, chart review, assessment and plan, discussion discussion >35 minutes Plan discussed with: Patient, Other (RN) Date of Service: Feb 24, 2025 Billing Provider: SCOTT GRAVES MD Common Visit Codes: 23425-[id number] INP/OBS CARE(HIGH) GARY CARBAJAL RESIDENT Feb 24, 2025 12:40
[2025-02-25 01:00] VITALS: BP 120/76; PULSE 88; RESP 18; TEMP 97.5; O2SAT 94
[2025-02-25] MEDS: ACETAMINOPHEN 325 MG TAB PO ONE (02:09)
[2025-02-25] MEDS: METOCLOPRAMIDE HCL 5MG/ml INJ 2ml VIAL IV ONE (02:09)
[2025-02-25 05:00] VITALS: BP 118/67; PULSE 58; RESP 19; TEMP 97.1; O2SAT 96
[2025-02-25 06:55] LABS: Chloride 106 mmol/L (98-107); Potassium 3.9 mmol/L (3.5-5.1); Sodium 142 mmol/L (136-145)
[2025-02-25 06:56] LABS: Anion Gap 10 (5-15); Carbon Dioxide 26 mmol/L (20-31)
[2025-02-25 06:57] LABS: Calcium 9.3 mg/dL (8.7-10.4)
[2025-02-25 07:02] LABS: BUN/Creatinine Ratio 9.1 (10.0-20.0); Blood Urea Nitrogen 16 mg/dL (9-23); Magnesium 2.0 mg/dL (1.6-2.6)
[2025-02-25 07:04] LABS: Glucose 155 mg/dL (74-106)
[2025-02-25 07:59] LABS: Hematocrit 46.3 % (36.0-46.0); Hemoglobin 14.9 g/dL (12.2-16.2); Mean Corpuscular Hemoglobin 27.9 pg (28.0-32.0); Mean Corpuscular Volume 86.6 fL (80.0-100.0); Nucleated Red Blood Cells % 0.0 %
[2025-02-25 08:00] VITALS: PULSE 63; RESP 16; O2SAT 95
[2025-02-25 08:08] LABS: Alanine Aminotransferase 34.0 U/L (7-40); Albumin 3.8 g/dL (3.2-4.8); Alkaline Phosphatase 111.0 U/L (46-116); Total Protein 6.6 g/dL (5.7-8.2)
[2025-02-25 08:09] LABS: Bilirubin, Direct 0.3 mg/dL (<0.3); Bilirubin, Total 1.0 mg/dL (0.2-1.0)
[2025-02-25 09:00] VITALS: BP 135/80; PULSE 63; RESP 16; TEMP 97.9; O2SAT 95
--- NOTE | 2025-02-25 12:03 | DVHSR ---
APPROVED REPORT EXAM: Two-dimensional and M-mode echocardiogram with Doppler and color Doppler. Blood Pressure: 118/67 mmHg INDICATION Insect bite RISK FACTORS Height: 5'5", Weight: 171 DIMENSIONS LVDd 3.6 (3.8-5.7cm) LA (2D) 3.3 (1.9-4.0cm) Aortic Root 3.4 (2.0-3.7cm) LVDs 2.6 (2.5-4.0cm) LA (MM) (1.9-4.0cm) Aortic Cusp Exc 1.4 (1.5-2.0cm) EF (%) 55.0 (55-70%) Rt. Atrium 3.8 (1.9-4.0cm) Asc. Aorta cm IVSd 1.0 (0.7-1.1cm) RV (D) (1.8-2.4cm) PWd 0.9 (0.7-1.1cm) Mitral Valve Mitral Mitral Stenosis E wave 0.87m/s MV Mean GR. mmHg A wave 1.15m/s MV Peak GR. mmHg E/A ratio 0.8 2D MVA cm2 DECEL Time 244ms PRESS 1/2 Time ms Aortic Valve Aortic Valve Aortic Stenosis V1 1.21m/s AO Mean GR. 4mmHg V2 1.20m/s AO Peak GR. 6mmHg LVOT Diameter 1.8 (1.8-2.4cm) Doppler MAURY 2.56cm2 Pulmonic Valve V2 0.67m/s Other Information Quality : Limited Rhythm : Technically limited study due to body habitus. Conclusion lvef 55% RV enlarged moderate small pericardial effusion near RV, no HD compromise limited quality study
[2025-02-25 13:00] VITALS: BP 126/77; PULSE 56; RESP 16; TEMP 97.2; O2SAT 95
[2025-02-25] MEDS ORDERED: CLIN-203 PO (13:38)
[2025-02-25] MEDS ORDERED: CLIN1CAP70 PO (13:38)
--- NOTE | 2025-02-25 13:53 | DVHDSRES ---
Discharge Summary Date of Admission Resident Creating Document: CRUZ HDZ RESIDENT Feb 23, 2025 at 12:41 Date of Discharge: Feb 25, 2025 Admitting Diagnosis Right periorbital swelling Labs/Diagnostic Data: Laboratory Results Test 02/25/25 11:31 02/25/25 05:53 02/23/25 15:43 02/23/25 13:00 POC Glucose 151 mg/dl (70-106) White Blood Count 9.4 10^3/uL (4.4-10.8) Red Blood Count 5.34 10^6/uL (4.0-5.20) Hemoglobin 14.9 g/dL (12.2-16.2) Hematocrit 46.3 % (36.0-46.0) Mean Corpuscular Volume 86.6 fL (80.0-100.0) Mean Corpuscular Hemoglobin 27.9 pg (28.0-32.0) Mean Corpuscular Hemoglobin Concent 32.2 g/dL (32.0-36.0) Red Cell Distribution Width 14.3 % (11.8-14.3) Platelet Count 151 10^3/uL (140-450) Mean Platelet Volume 8.7 fL (6.9-10.8) Neutrophils (%) (Auto) 71.4 % (37.0-80.0) Lymphocytes (%) (Auto) 20.7 % (10.0-50.0) Monocytes (%) (Auto) 5.3 % (0.0-12.0) Eosinophils (%) (Auto) 2.2 % (0.0-7.0) Basophils (%) (Auto) 0.4 % (0.0-2.0) Neutrophils # (Auto) 6.7 10 ^3/uL (1.6-8.6) Lymphocytes # (Auto) 1.9 10 ^3/uL (0.4-5.4) Monocytes # (Auto) 0.5 10 ^3/uL (0-1.3) Eosinophils # (Auto) 0.2 10 ^3/uL (0-0.8) Basophils # (Auto) 0 10 ^3/uL (0-0.2) Nucleated Red Blood Cells 0.0 % Sodium Level 142 mmol/L (136-145) Potassium Level 3.9 mmol/L (3.5-5.1) Chloride Level 106 mmol/L (98-107) Carbon Dioxide Level 26 mmol/L (20-31) Anion Gap 10 (5-15) Blood Urea Nitrogen 16 mg/dL (9-23) Creatinine 1.75 mg/dL (0.550-1.02) Glomerular Filtration Rate Calc 30 mL/min (>90) BUN/Creatinine Ratio 9.1 (10.0-20.0) Serum Glucose 155 mg/dL (74-106) Calcium Level 9.3 mg/dL (8.7-10.4) Magnesium Level 2.0 mg/dL (1.6-2.6) Total Bilirubin 1.0 mg/dL (0.2-1.0) Direct Bilirubin 0.3 mg/dL (<0.3) Aspartate Amino Transferase (AST) 40 U/L (13-40) Alanine Aminotransferase (ALT) 34 U/L (7-40) Alkaline Phosphatase 111 U/L (46-116) Total Protein 6.6 g/dL (5.7-8.2) Albumin 3.8 g/dL (3.2-4.8) Urine Opiates Screen Pos (NEGATIVE) Urine Fentanyl Screen Neg (NEGATIVE) Urine Barbiturates Screen Neg (NEGATIVE) Urine Phencyclidine Screen Neg (NEGATIVE) Urine Amphetamines Screen Neg (NEGATIVE) Urine Benzodiazepines Screen Neg (NEGATIVE) Urine Cocaine Screen Neg (NEGATIVE) Urine Cannabinoids Screen Neg (NEGATIVE) Prothrombin Time 10.6 sec (9.3-11.8) Prothrombin Time INR 1.00 (0.9-1.15) Activated Partial Thromboplast Time 25.7 SEC (24.5-34.5) Lactic Acid Level 1.1 mmol/L (0.4-2.0) Test 02/23/25 10:41 02/23/25 08:00 Urine Color Light-yellow (Yellow) Urine Clarity Clear (Clear) Urine pH 5.0 (5.0-9.0) Urine Specific Rush 1.011 (1.001-1.035) Urine Protein Negative (Negative) Urine Ketones Negative (Negative) Urine Blood Negative /uL (Negative) Urine Nitrite Negative (Negative) Urine Bilirubin Negative (Negative) Urine Urobilinogen Normal mg/dL (Negative) Urine Leukocyte Esterase 1+ /uL (Negative) Urine RBC 1 /hpf (0 - 4) Urine Microscopic WBC 5 /HPF (0-5) Urine Squamous Epithelial Cells Few /hpf (<5) Urine Uric Acid Crystals Few /hpf (None Seen) Urine Bacteria Few /hpf (None Seen) Urine Glucose 4+ mg/dL (Normal) Hemoglobin A1c 12.5 % A1C (<5.7) Phosphorus Level 3.8 mg/dL (2.4-5.1) Triglycerides Level 365 mg/dL (< 150) Cholesterol Level 236 mg/dL (< 200) LDL Cholesterol 140 mg/dL (< 100) HDL Cholesterol 40 mg/dL (40-59) Lipase 86 U/L (12-53) Vitamin B12 Level 595 pg/mL (211-911) Vitamin D 25-Hydroxy 30.6 ng/mL (30.0-100) Thyroid Stimulating Hormone (TSH) 1.60 uIU/mL (0.55-4.78) Other Laboratory Tests 02/25/25 05:53 Brief Hx & Hospital Course: Nichelle Abel is a 75-year-old female with a significant past medical history of dyslipidemia, type 2 diabetes mellitus, chronic kidney disease stage 3, asthma, questionable myocardial infarction nine years ago without coronary angiography, chronic back pain, peptic ulcer disease complicated by perforation status post exploratory laparotomy, prior head trauma with brain bleed two years ago resulting in gait disturbance (uses walker), and history of skin cancer. She presented to the emergency department with right periorbital swelling, erythema, and difficulty opening her eye following an insect bite (ant) that occurred the previous morning. Associated symptoms included chills, nausea, and non-bloody bilious vomiting. She reported similar symptoms after a prior bee sting. She denied fever, visual changes, or ocular pain with movement. Laboratory studies revealed no leukocytosis, serum creatinine 1.63 mg/dL, GFR 33 mL/min/1.73 m, HbA1c 12.5%, serum glucose 215 mg/dL, and LDL 236 mg/dL. Urinalysis showed leukocyte esterase 1+, WBC 5, and few bacteria. Maxillofacial CT demonstrated right orbital preseptal and facial edema and stranding consistent with cellulitis, without postseptal or retrobulbar extension. Chest X-ray showed mild pulmonary vascular congestion; chest ultrasound was negative for pleural effusion. The patient was admitted for management of right preseptal cellulitis secondary to insect bite. She was started on intravenous Zosyn and clindamycin, which she tolerated well. Hospital Course The chest ultrasound performed on February 23, 2025, showed no pleural effusions bilaterally. The maxillofacial CT scan without contrast demonstrated right orbital preseptal and right facial region edema with inflammatory stranding, which is more pronounced in the infraorbital region. There was no evidence of retrobulbar extension, and the extraocular muscles appeared unremarkable. A small right mastoid effusion and mild mucosal thickening of the ethmoid sinuses were noted. An incidental finding of an empty sella was reported, and no facial fractures were identified. The impression was right orbital preseptal and right facial region edema and stranding consistent with cellulitis in the appropriate clinical setting, with no postseptal or retrobulbar involvement. Blood cultures showed no growth after 24 and 48 hours of incubation. The MRSA nasal screen was negative. The wound culture demonstrated few coagulase-negative Staphylococcus organisms, and susceptibility testing was not routinely performed on this isolate. The Gram stain revealed no white blood cells and few gram-positive cocci in pairs. The urine culture showed no growth after 36 hours of incubation. The echocardiogram revealed a left ventricular ejection fraction of 55 percent, moderate right ventricular enlargement, and a small pericardial effusion near the right ventricle without hemodynamic compromise. The study was technically limited due to body habitus. Facial swelling and erythema improved during hospitalization. Hyperglycemia was managed with insulin sliding scale, and dyslipidemia therapy was continued with atorvastatin. Chronic conditions including asthma, CKD stage III, and peptic ulcer disease were monitored and managed appropriately. No acute neurological deficits were noted. Goals of care were discussed, and the patients code status was confirmed as DNR. The patient is clinically stable and will be discharged home on oral clindamycin to complete the antibiotic course. She will continue her home medications, including insulin regimen, atorvastatin, pantoprazole, and other chronic medications. She is advised to follow up with her primary care physician and ophthalmology as needed. She should return to the emergency department for worsening facial swelling, fever, visual changes, or any new symptoms. Examination General examination- awake, alert, oriented HEENT- PEERLA-redness in the right side of the face, under the right eye Cardiovascular- S1-S2 audible, rate and rhythm regular, no murmur Respiratory- CTAB, no wheeze or rhonchi Gastrointestinal-nontender, bowel sound+. Nondistended Musculoskeletal-no acute joint swelling or tenderness or redness Lower extremity- no leg edema Neurological- cranial nerves intact, no acute dysarthria or dysphagia Psychiatry- denies depression or SI or HI Skin- no acute rash or purpura Operations or Procedures [id number] UN[facility]: [id number] : 1950 LOC: OVERFLOW ROOM / BED: 1009-ER / A AGE / SEX: 75 / F ADM STATUS: ADM IN SERVICE 1246 ORDERING PHYSICIAN: HARDY FIELD PROCEDURE(s): CHSTU - CHEST ULTRASOUND REASON: Pleural effusion ORDER NUMBER(s): [id number], ACCESSION NUMBER(s): [id number] Exam: US CHEST ULTRASOUND Date: 02/23/2025 01:02 PM Clinical History: Pleural effusion Comparison: CT CHEST WITHOUT on DOS: 05/18/24 Technique: Targeted sonographic evaluation of the soft tissues of the chest bilaterally was obtained utilizing grayscale and color Doppler imaging. Findings: No pleural effusions bilaterally IMPRESSION: 1. No pleural effusions bilaterally. --------- PATIENT: NICHELLE ABEL ACCT: [id number] UNIT: [id number] : 1950 LOC: ER ROOM / BED: / AGE / SEX: 75 / F ADM STATUS: REG ER SERVICE 1126 ORDERING PHYSICIAN: HARDY FIELD PROCEDURE(s): FAC2C - MAXILLOFACIAL WITHOUT REASON: Evaluate periorbital collection, pt has CKD (no contrast) ORDER NUMBER(s): [id number], ACCESSION NUMBER(s): [id number] CT MAXILLOFACIAL WITHOUT Indication: Evaluate periorbital collection, pt has CKD (no contrast) EXAM DATE: 02/23/2025 11:36 AM COMPARISON: None TECHNIQUE: CT of the maxillofacial bones without intravenous contrast. RADIATION DOSE: CTDIvol: 66.3 mGy, DLP: 1333.46 mGy*cm FINDINGS: There is bright orbital preseptal and Right facial region edema with inflammatory stranding. This is more pronounced in the right facial /infraorbital orbital region. There is no evidence for retrobulbar extension. The extra-ocular muscles appear unremarkable. There is a small right mastoid effusion. Mild mucosal thickening of the ethmoids. Incidental note of empty sella. No facial region Fracture identified. IMPRESSION: Right orbital preseptal and Right facial region edema and stranding could represent cellulitis in the appropriate setting. Correlate clinically. No evidence for postseptal/ retrobulbar extension. Empty sella. - -------- PATIENT: NICHELLE ABEL ACCT: [id number] UNIT: [id number] : 1950 LOC: ER ROOM / BED: / AGE / SEX: 75 / F ADM STATUS: REG ER SERVICE 0754 ORDERING PHYSICIAN: LOGAN CLEMENTE MD PROCEDURE(s): CXRP - CHEST PORTABLE REASON: sob ORDER NUMBER(s): [id number], ACCESSION NUMBER(s): [id number] EXAM: XY CHEST PORTABLE Indication: sob Technique: Single frontal view of the chest was obtained Comparison: XR CHEST 1 VIEW on DOS: 05/18/24, CXRP on DOS: 06/27/21, CHEST PORTABLE on DOS: 06/27/21 FINDINGS: Lines and Tubes: Cardiac loop recorder device projects over the left mediastinum. Lungs: Mild pulmonary vascular congestion. Pleura: No effusion. No pneumothorax. Cardiomediastinal contours: Unremarkable Bones: No acute osseous abnormality. IMPRESSION: Mild pulmonary vascular congestion. - -------- [facility] [address] [address] Remedios Ovalle M.D., Laboratory [employer] Consultant - PATIENT: NICHELLE ABEL ACCT: [id number] LOC: OVERFLOW U: [id number] AGE/SX: 75/F ROOM: [address] [place] [address] RE02/23/[address]: HARDY FIELD : 1950 BED: A DIS: STATUS: ADM IN TLOC: - SPEC #: [id number] PIOTR: 02/23/25 STATUS: RES REQ #: [id number] RECD: 02/23/[address]: HARDY FIELD RESIDENT SOURCE: BLOOD ENTR: 02/23/25-[address]: LOGAN CLEMENTE MD [facility]: ORDERED: BCULT - Procedure Result - Blood Culture Preliminary NO GROWTH AFTER 24 HOURS OF INCUBATION. NO GROWTH AFTER 24 HOURS OF INCUBATION. [facility] [address] [address] Remedios Ovalle M.D., Laboratory [employer] Consultant - PATIENT: NICHELLE ABEL ACCT: [id number] LOC: TRACY U: [id number] AGE/SX: 75/F ROOM: [facility] RE02/23/[address]: HARDY FIELD : 1950 BED: A DIS: STATUS: ADM IN TLOC: - SPEC #: [id number] PIOTR: 02/23/25 STATUS: RES REQ #: [id number] RECD: 02/23/[address]: HARDY FIELD RESIDENT SOURCE: FACE ENTR: 02/23/[address]: LOGAN CLEMENTE MD [facility]: ORDERED: WNDC w/ GS - Procedure Result - Gram Stain Final RESULT No White Blood Cells Seen Few Gram Positive Cocci in pairs Wound Culture Preliminary Report Few growth: Coagulase Negative Staphylococcus Susceptibility testing not routinely done on this isolate. [facility] [address] [id number] Remedios Ovalle M.D., Laboratory [employer] Consultant - PATIENT: NICHELLE ABEL ACCT: [id number] LOC: OVERFLOW U: [id number] AGE/SX: 75/F ROOM: [address] [place] [address] RE02/23/[address]: HARDY FIELD : 1950 BED: A DIS: STATUS: ADM IN TLOC: - SPEC #: [id number] PIOTR: 02/23/25 STATUS: COMP REQ #: [id number] RECD: 02/23/25-[address]: HARDY FIELD RESIDENT SOURCE: NOSE ENTR: 02/23/25-[address]: LOGAN CLEMENTE MD [facility]: ORDERED: MRSAS - Procedure Result - MRSA Screen Final RESULT NEGATIVE No MRSA detected. Methodology: DNA Amplification This is an automated qualitative in vitro diagnostic test for the direct detection of methicillin-resistant Staphylococcus aureus (MRSA) DNA from nasal swabs that utilizes real-time polymerase chain reaction (PCR) and flourogenic target-specific hybridization probes for the detection of the amplified DNA. [facility] [address] [address] Remedios Ovalle M.D., Laboratory [employer] Consultant - PATIENT: NICHELLE ABEL ACCT: [id number] LOC: TRACY U: [id number] AGE/SX: 75/F ROOM: 0218 RE02/23/[address]: HARDY FIELD : 1950 BED: A DIS: STATUS: ADM IN TLOC: - SPEC #: [id number] PIOTR: 02/23/25 STATUS: RES REQ #: [id number] RECD: 02/23/25-[address]: HARDY FIELD SOURCE: BLOOD ENTR: 02/23/25-[address]: LOGAN CLEMENTE MD [facility]: ORDERED: BCULT - Procedure Result - Blood Culture Preliminary NO GROWTH AFTER 48 HOURS OF INCUBATION. NO GROWTH AFTER 48 HOURS OF INCUBATION. [facility] [address] [place], [place] [address] Remedios Ovalle M.D., Laboratory [employer] Consultant - PATIENT: NICHELLE ABEL ACCT: [id number] LOC: TRACY U: [id number] AGE/SX: 75/F ROOM: Formerly named [facility] RE02/23/[address]: HARDY FIELD : 1950 BED: A DIS: STATUS: ADM IN TLOC: - SPEC #: [id number] PIOTR: 02/23/25-1040 STATUS: RES REQ #: [id number] RECD: 02/23/25-[address]: HARDY FIELD SOURCE: VOID ENTR: 02/23/[address]: LOGAN CLEMENTE MD [facility]: ORDERED: URC - Procedure Result - Urine Bacterial Culture Preliminary Report No growth after 36 hours incubation. - -------- PATIENT: NICHELLE ABEL ACCT: [id number] UNIT: [id number] : 1950 LOC: CENTRAL ROOM / BED: [facility] A AGE / SEX: 75 / F ADM STATUS: ADM IN SERVICE 1241 ORDERING PHYSICIAN: HARDY FIELD PROCEDURE(s): ECIDC - ECHO 2D MODE CARDIAC DOP REASON: SOB ORDER NUMBER(s): [id number], ACCESSION NUMBER(s): [id number] APPROVED REPORT EXAM: Two-dimensional and M-mode echocardiogram with Doppler and color Doppler. Blood Pressure: 118/67 mmHg INDICATION Insect bite RISK FACTORS Height: 5'5", Weight: 171 DIMENSIONS LVDd 3.6 (3.8-5.7cm) LA (2D) 3.3 (1.9-4.0cm) Aortic Root 3.4 (2.0- 3.7cm) LVDs 2.6 (2.5-4.0cm) LA (MM) (1.9-4.0cm) Aortic Cusp Exc 1.4 (1.5- 2.0cm) EF (%) 55.0 (55-70%) Rt. Atrium 3.8 (1.9-4.0cm) Asc. Aorta cm IVSd 1.0 (0.7-1.1cm) RV (D) (1.8-2.4cm) PWd 0.9 (0.7-1.1cm) Mitral Valve Mitral Mitral Stenosis E wave 0.87m/s MV Mean GR. mmHg A wave 1.15m/s MV Peak GR. mmHg E/A ratio 0.8 2D MVA cm2 DECEL Time 244ms PRESS 1/2 Time ms Aortic Valve Aortic Valve Aortic Stenosis V1 1.21m/s AO Mean GR. 4mmHg V2 1.20m/s AO Peak GR. 6mmHg LVOT Diameter 1.8 (1.8-2.4cm) Doppler MAURY 2.56cm2 Pulmonic Valve V2 0.67m/s Other Information Quality : Limited Rhythm : Technically limited study due to body habitus. Conclusion lvef 55% RV enlarged moderate small pericardial effusion near RV, no HD compromise limited quality study SIGNED BY: TOAN CH MD SIGNED DATE/TIME: 02/25/25 1203 Condition at Discharge: Stable Final Diagnosis/Problems List #Right preseptal ocular Cellulitis secondary to insect bite #Ruled out periorbital abscess #diabetes mellitus type 2 with hyperglycemia #Chronic kidney disease stage III B Discharge Disposition: Home Discharge Instruct/Medications Diet: Renal Activity: No Restrictions, As Tolerated Follow Up/Referral: Follow up with PCP within 1 week Medications: New prescriptions: Cindamycin Hcl 300 MG 1 Cap PO TID 3 Days Continue home medications Scheduled Clindamycin Hcl (Clindamycin Hcl), 1 CAP PO TID Famotidine (Pepcid Tablet), 1 TAB PO BID, (Reported) Metoclopramide Hcl (Reglan), 10 MG PO ACHS, (Reported) Morphine Sulfate (Morphine Sulfate), 0.5 TAB PO TID, (Reported) Ondansetron HCl (Ondansetron), 4 MG PO Q6HPRN, (Reported) Scheduled PRN Morphine Sulfate (Morphine Sulfate), 1 TAB PO TID PRN for PAIN SCALE 7 THRU 10, (Reported) Miscellaneous Medications Dapagliflozin Propanediol (Farxiga), 5 MG PO, (Reported) Discharge Statement: "Patient was advised to return to the ER or call 911 if any headaches, dizziness, shortness of breath, chest pain, abdominal pain, bleeding, fevers, or worsening of medical condition. Patient was counseled about treatment plan, medications, possible side effects, patientverbalized understanding. All questions were answered to the best of my ability. This discharge took greater then 30 minutes in planning, reviewing documentation, counseling the patient, and discussing with other team members." ASSESSMENT ASSESSMENT Assessment #Right preseptal ocular Cellulitis secondary to insect bite #Ruled out periorbital abscess #diabetes mellitus type 2 with hyperglycemia #Chronic kidney disease stage III B Date of Service: Feb 25, 2025 Billing Provider: SCOTT KEITA MD Common Visit Codes: 07440-YRX/OBS DISCH DAY >30min CRUZ HDZ RESIDENT Feb 25, 2025 13:53
== END 2025-02-25 15:31 | disposition home or self-care (01) | DRG 603 ==
LOC: ER 07:11 → OVERFLOW 12:41 → CENTRAL 02-24 17:16
PROVIDERS: ADMIT Student in an Organized Health Care Education/Training Program; ATTEND Emergency Medicine
DX: L03.213 Periorbital cellulitis (principal); E11.22 Type 2 diabetes mellitus with diabetic chronic kidney disease; N39.0 Urinary tract infection, site not specified; L03.211 Cellulitis of face; J45.909 Unspecified asthma, uncomplicated; I12.9 Hypertensive chronic kidney disease with stage 1 through stage 4 chronic kidney disease, or unspecified chronic kidney disease; N18.32 Chronic kidney disease, stage 3b; E11.65 Type 2 diabetes mellitus with hyperglycemia; E78.5 Hyperlipidemia, unspecified; I48.91 Unspecified atrial fibrillation; Z90.710 Acquired absence of both cervix and uterus; Z86.73 Personal history of transient ischemic attack (TIA), and cerebral infarction without residual deficits; I25.2 Old myocardial infarction; Z90.49 Acquired absence of other specified parts of digestive tract; Z85.828 Personal history of other malignant neoplasm of skin; Z80.3 Family history of malignant neoplasm of breast; W57.XXXA Bitten or stung by nonvenomous insect and other nonvenomous arthropods, initial encounter; Y93.89 Activity, other specified; Y92.89 Other specified places as the place of occurrence of the external cause; Y99.8 Other external cause status
CPT/HCPCS: 36415; 70486; 71045; 76604; 80048; 80053; 80061; 80076; 80307; 81001; 82306; 82607; 82962; 83036; 83605; 83690; 83735; 84100; 84443; 85025; 85610; 85730; 87040; 87081; 87086; 87205; 93306; 96365; G0378; J1815; J2405; J2543; J3490